=== PATIENT | male | born 1965 | race Caucasian/White ===

== ENCOUNTER 2016-08-12 06:47 | Day surgery (SDC) | payer BC ==
--- NOTE | 2016-07-07 11:06 | HP ---
DATE OF ADMISSION: 08/12/2016 DATE OF DICTATION: 07/05/2016 The patient will be admitted through the [place] ambulatory surgical service. 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 Patient had initially had undergone a right inguinal hernia repair in 2005. He went on to develop a relatively immediate recurrence, which was subsequently addressed in 2006. After completion of his recurrent right inguinal hernia repair, he states that he continued to remain with the bulge at the level of the right groin. Not having wanted to return for the 3rd surgery, he allowed the process to evolve and has ultimately gone on to develop a rather large chronically incarcerated right inguinal hernia. At this juncture he is uncomfortable both in terms of pain but also uncomfortable given the visual nature of the large mass at the level of his right groin. No underlying GI, , or respiratory complaints to suggest re-disposition of hernia formation. Patient has been a smoker and this obviously does predispose him otherwise. PAST MEDICAL HISTORY: Significant for hypercholesterolemia and hypertension. No history of diabetes, heart disease, respiratory and/or hepatic insufficiency. PAST SURGICAL HISTORY: Significant for open right inguinal hernia 2005 followed by open repair of recurrent right inguinal hernia in 2006. ALLERGIES: None known. MEDICATION: Lisinopril, atorvastatin. SOCIAL HISTORY: Positive tobacco just a little less than a pack a day. Negative alcohol. FAMILY HISTORY: None. REVIEW OF SYSTEMS: None. PHYSICAL EXAMINATION: On inspection, he has a very large hernia involving the groin and extending into the scrotum. In the supine position, it has partially been not entirely reducible. Contralateral side is significant for attenuation of the musculature, but no obvious herniation. IMPRESSION: Large chronically incarcerated complex recurrent right inguinal hernia. The right inguinal hernia (second recurrence). PLAN: Attempt laparoscopic reduction repair of chronically incarcerated complex recurrent right inguinal hernia with mesh. Likely left repair with mesh as well given the clinical findings, as I suspect he has a left inguinal hernia as well. If the procedure cannot be completed laparoscopically, understands he may require an open right procedure. Given the nature of the situation, he understands the likelihood of developing a rather large seroma postoperatively which may or may not entirely be absorbed with the time. He also understands that in addition to the discomfort he has now, he may remain with some chronic discomfort, particularly pain radiating to this testes given the manipulation of the tissues and cord structures throughout the course of events. Indications, alternatives, possible complications reviewed. Consent obtained. Patient to be seen by his primary care physician in the near future, date to be determined. Patient to be seen by his primary care physician for medical evaluation. Please refer to those notes for those medical details. CHLOÉ PRADO M.D. [id number] MTDD
[2016-08-04 16:49] VITALS: BMI 32.1
[2016-08-12] MEDS ORDERED: TAMSULOSIN HCL 0.4 MG CAP.ER.24H (FP) ONE (07:55)
[2016-08-12] MEDS ORDERED: MIDAZOLAM HCL 2 MG/2 ML SINGLE DOSE VIAL ONE (09:01)
[2016-08-12] MEDS ORDERED: PROPOFOL 20 ML ONE (09:01)
[2016-08-12] MEDS ORDERED: ROCURONIUM BROMIDE 50 MG/5 ML VIAL ONE ×2 (09:03→10:15)
[2016-08-12] MEDS ORDERED: SUCCINYLCHOLINE CHLORIDE 200 MG/10 ML VIAL ONE (09:04)
[2016-08-12] MEDS ORDERED: NEOSTIGMINE METHYLSULFATE 0.5 MG/ML - 10 ML MDV ONE (10:06)
[2016-08-12] MEDS ORDERED: HYDROmorphone HCL/PF 1 MG/ML VIAL (FOR PYXIS CHARGING ONLY) ONE (10:18)
[2016-08-12] MEDS ORDERED: oxyCODONE HCL 5 MG TABLET PO PRN (11:26)
[2016-08-12] MEDS ORDERED: PROMETHAZINE HCL 25 MG/1 ML VIAL IVPUSH PRN (11:27)
[2016-08-12] MEDS ORDERED: oxyCODONE HCL 5 MG TABLET ONE (13:40)
[2016-08-12 15:12] VITALS: BP 116/71; PULSE 84; TEMP 98.2
--- NOTE | 2016-08-13 11:39 | OP ---
DATE OF OPERATION: 08/12/2016 PREOPERATIVE DIAGNOSIS: Complex chronically incarcerated recurrent right inguinal scrotal hernia/left inguinal hernia. POSTOPERATIVE DIAGNOSIS: Complex chronically incarcerated recurrent right inguinal scrotal hernia/left inguinal hernia. PROCEDURE: Laparoscopic reduction and repair of complex chronically incarcerated recurrent right inguinal scrotal hernia with mesh/laparoscopic repair of indirect left inguinal hernia with mesh. OPERATING SURGEON: Chloé Glass MD ASSOCIATE MARKETING MANAGER: Thad Gaines MD ANESTHESIA: General; Krunal Lay MD HISTORY: A 51-year-old man who had undergone 2 prior repairs at the level of his right groin and presents now with a large chronically incarcerated longstanding inguinal scrotal recurrence. Patient also with a smaller left inguinal hernia. Indications, alternatives, possible complications, attendant procedure reviewed with consent obtained. PROCEDURE: With the patient in the supine position, after general anesthesia, the abdomen was prepped and draped in sterile fashion using chlorhexidine. Small incision was made just beneath the umbilicus and off to the right of the midline. The subcutaneous tissues were . The right anterior rectus sheath was identified and incised. The rectus muscle fibers were retracted laterally in both directions, exposing the preperitoneal space. Dissecting balloon was advanced in the preperitoneal space. The balloon was insufflated, creating a dissection. The balloon was removed, leaving a structural collar in place. The camera lens was passed through this port and the preperitoneal space visualized. Under direct vision, an 11-mm port was placed in the midline midway between the umbilicus and the pubis. An additional 5-mm PD port was placed on the left side. Using 2 graspers, the space was explored. The large chronically incarcerated recurrent indirect hernia on the right was easily encountered. There was a smaller indirect left as well. There were no obvious direct femoral hernias noted. First turning our attention to the right side, the large sac was freed from its attachment to the cord structures, retracting the sac cephalad. The majority of the large sac could be reduced along with its contents. However, the distal portion of the sac was densely adherent to obvious mesh in the groin from prior repair. The sac could not be further mobilized at that level. The sac was then transected, allowing the mesh and the distal portion of the open sac to retract back up into the groin. The open portion of the sac allowed visualization of the small bowel. The sac was closed using a continuous chromic 3-0 V-Loc suture. The internal ring was capacious as anticipated. Using a piece of 6-inch by 6-inch Versatex mesh, which was keyholed, the mesh was placed into the preperitoneal space. Mesh was tacked on the right side using counterpalpation and AbsorbaTacker. The mesh was fixed anterior to the anterior abdominal wall. The mesh was fixed superiorly to the iliopubic tract. The mesh was fixed inferiorly to Drake ligament and the pubic tubercle. The keyhole leaf was wrapped around the cord structures and tacked in place, reconstructing the internal ring. There appeared to be additional attenuation of the right lateral abdominal wall. A piece of Versatex measuring approximately 4 x 4 inches in size was placed and tacked on the left side, buttressing the lateral aspect of the right lower abdominal wall as well. Now directing our attention to the contralateral side, the indirect component was reduced. The left side was repaired using a piece of 4 x 6 Versatex mesh. It was fastened in place as described above for the contralateral side. After completion of the repair, the mesh was noted to overlap in the midline. Adequate hemostasis was ensured. All ports were removed under direct vision, no bleeding identified. Ultimately, the camera lens and umbilical port were removed and the gas was allowed to escape from the preperitoneal space. The fascia at both the umbilical and midline port sites was closed using interrupted 0 Vicryl sutures. All 3 skin wounds were closed using subcuticular 4-0 Biosyn sutures. NEEDLE AND INSTRUMENT COUNT: Correct. ESTIMATED BLOOD LOSS: Minimal. SPECIMEN: None. DRAINS: None. IMPLANT: Versatex mesh bilaterally. Patient tolerated the procedure. The procedure was terminated. CHLOÉ GLASS M.D. [id number]
== END 2016-08-12 14:50 | disposition home or self-care (01) ==
LOC: FASU 06:47
PROVIDERS: ATTEND Surgery
PROC: 0YUA4JZ Supplement Bilateral Inguinal Region with Synthetic Substitute, Percutaneous Endoscopic Approach (ICD-10-PCS; principal; 2016-08-12 09:54)
DX: K40.31 Unilateral inguinal hernia, with obstruction, without gangrene, recurrent (principal); K40.90 Unilateral inguinal hernia, without obstruction or gangrene, not specified as recurrent
CPT/HCPCS: 94760